=== PATIENT | female | born 2000 | race Hispanic/Latino ===

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

== ENCOUNTER 2021-11-30 23:05 | Emergency (ER) | payer SELFPAY ==
--- NOTE | 2021-12-01 00:30 | ER ---
Nurse's Notes [facility] Name: Wendy Soto Age: 21 yrs Sex: Female : 2000 Arrival Date: 11/30/2021 Time: 23:10 Bed 26 Private MD: Diagnosis: Dermatitis, unspecified;Rash and other nonspecific skin eruption Presentation: 11/30 23:21 Chief complaint: Patient states: States I am having real bad skin irritation on back, ll3 legs, breast area, and armpit area, since last night, states the rash went away then came back. Coronavirus screen: Vaccine status: Patient reports receiving the 2nd dose of the covid vaccine. At this time, the client does not indicate any symptoms associated with coronavirus-19. Ebola Screen: No symptoms or risks identified at this time. Initial Sepsis Screen: Does the patient meet any 2 criteria? No. Patient's initial sepsis screen is negative. Does the patient have a suspected source of infection? No. Patient's initial sepsis screen is negative. Risk Assessment: Do you want to hurt yourself or someone else? Patient reports no desire to harm self or others. Onset of symptoms was November 29, 2021. 23:21 Method Of Arrival: Ambulatory ll3 23:21 Acuity: XIOMARA 4 ll3 Triage Assessment: 23:24 General: Appears uncomfortable, Behavior is calm, cooperative. Pain: Denies pain. ll3 Neuro: Level of Consciousness is awake, alert, obeys commands, Oriented to person, place, time, situation. Cardiovascular: Patient's skin is warm and dry. Respiratory: Respiratory effort is even, unlabored, Respiratory pattern is regular, symmetrical. Derm: Rash noted that is itchy. 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 - Social history:: Smoking status: Patient reports the use of cigarette tobacco products, denies chronic smoking, but will smoke occasionally. Screenin/06 00:47 Abuse screen: Denies threats or abuse. Nutritional screening: No deficits noted. jb4 Tuberculosis screening: No symptoms or risk factors identified. Fall Risk None identified. Assessment: 00:47 General: Appears in no apparent distress. comfortable, Behavior is calm, cooperative, jb4 appropriate for age. Pain: Denies pain. Neuro: Level of Consciousness is awake, alert, obeys commands, Oriented to person, place, time, situation. Cardiovascular: Patient's skin is warm and dry. Respiratory: Airway is patent Respiratory effort is even, unlabored, Respiratory pattern is regular, symmetrical. GI: No signs and/or symptoms were reported involving the gastrointestinal system. : No signs and/or symptoms were reported regarding the genitourinary system. EENT: No signs and/or symptoms were reported regarding the EENT system. Derm: Skin is intact, Skin is pink, warm \T\ dry. Rash noted that is on back, right arm and left arm. Musculoskeletal: Circulation, motion, and sensation intact. Range of motion: intact in all extremities. Vital Signs: 11/30 23:21 BP 126 / 84; Pulse 79; Resp 16; Temp 99.0(TE); Pulse Ox 100% on R/A; Weight 50.8 kg ll3 (R); Height 5 ft. 4 in. (162.56 cm) (R); Pain 0/10; 23:21 Body Mass Index 19.22 (50.80 kg, 162.56 cm) ll3 ED Course: 23:10 Patient arrived in ED. kz 23:24 Triage completed. ll3 23:24 Arm band placed on. ll3 12/01 00:06 Saurabh Frausto MD is Attending Physician. [facility] 00:29 Yusuf Serna, JEFFERY is Primary Nurse. jb4 00:47 Patient has correct armband on for positive identification. Bed in low position. Call jb4 light in reach. Side rails up X 1. 00:47 No provider procedures requiring assistance completed. Patient did not have IV access jb4 during this emergency room visit. Administered Medications: 00:40 Drug: predniSONE 40 mg Route: PO; jb4 00:40 Follow up: Response: Medication administered at discharge. jb4 00:40 Drug: Pepcid (famotidine) 40 mg Route: PO; jb4 00:40 Follow up: Response: Medication administered at discharge. jb4 00:40 Drug: Benadryl (diphenhydrAMINE) 25 mg Route: PO; jb4 00:40 Follow up: Response: Medication administered at discharge. jb4 Outcome: 00:30 Discharge ordered by . elijah 00:47 Discharged to home ambulatory. jb4 00:47 Condition: stable 00:47 Discharge instructions given to patient, Instructed on discharge instructions, follow up and referral plans. medication usage, Demonstrated understanding of instructions, follow-up care, medications, Prescriptions given X 1. 00:48 Patient left the ED. jb4 Signatures: Saurabh Frausto MD MD cha Bryson, James, RN RN jb4 Alexsander Hernandes RN RN ll3 Raiza Dumont
--- NOTE | 2021-12-01 00:31 | EDPHYS ---
Physician Documentation [facility] Name: Wendy Soto Age: 21 yrs Sex: Female : 2000 Arrival Date: 11/30/2021 Time: 23:10 Bed 26 Private MD: CRUZ Physician Saurabh Frausto HPI: 12/01 00:14 This 21 yrs old Female presents to ER via Ambulatory with complaints of Rash - elijah All over. 00:14 The patient's rash thought to be caused by Dermatitis. The rash is located on the body elijah diffusely. The rash can be described as erythematous. Onset: The symptoms/episode began/occurred 1 day(s) ago. Associated signs and symptoms: Pertinent positives:. NETWORK ADMIN: 11/30 23:24 LMP 11/16/2021 ll3 Historical: - Allergies: 23:24 PENICILLINS; ll3 - Home Meds: 23:24 None [Active]; ll3 - PMHx: 23:24 None; ll3 - PSHx: 23:24 None; ll3 - Immunization history:: Client reports receiving the 2nd dose of the Covid vaccine. - Social history:: Smoking status: Patient reports the use of cigarette tobacco products, denies chronic smoking, but will smoke occasionally. ROS: 12/01 00:23 Constitutional: Negative for fever, chills, and weight loss, Eyes: Negative for injury, elijah pain, redness, and discharge, ENT: Negative for injury, pain, and discharge, Neck: Negative for injury, pain, and swelling, Cardiovascular: Negative for chest pain, palpitations, and edema, Respiratory: Negative for shortness of breath, cough, wheezing, and pleuritic chest pain, Abdomen/GI: Negative for abdominal pain, nausea, vomiting, diarrhea, and constipation, Back: Negative for injury and pain, : Negative for injury, bleeding, discharge, and swelling, MS/Extremity: Negative for injury and deformity, Neuro: Negative for headache, weakness, numbness, tingling, and seizure, Psych: Negative for depression, anxiety, suicide ideation, homicidal ideation, and hallucinations, Allergy/Immunology: Negative for hives, rash, and allergies, Endocrine: Negative for neck swelling, polydipsia, polyuria, polyphagia, and marked weight changes, Hematologic/Lymphatic: Negative for swollen nodes, abnormal bleeding, and unusual bruising. Skin: Positive for rash. Exam: 00:23 Constitutional: This is a well developed, well nourished patient who is awake, alert, elijah and in no acute distress. Head/Face: Normocephalic, atraumatic. Eyes: Pupils equal round and reactive to light, extra-ocular motions intact. Lids and lashes normal. Conjunctiva and sclera are non-icteric and not injected. Cornea within normal limits. Periorbital areas with no swelling, redness, or edema. ENT: Nares patent. No nasal discharge, no septal abnormalities noted. Tympanic membranes are normal and external auditory canals are clear. Oropharynx with no redness, swelling, or masses, exudates, or evidence of obstruction, uvula midline. Mucous membranes moist. Neck: Trachea midline, no thyromegaly or masses palpated, and no cervical lymphadenopathy. Supple, full range of motion without nuchal rigidity, or vertebral point tenderness. No Meningismus. Chest/axilla: Normal chest wall appearance and motion. Nontender with no deformity. No lesions are appreciated. Cardiovascular: Regular rate and rhythm with a normal S1 and S2. No gallops, murmurs, or rubs. Normal PMI, no JVD. No pulse deficits. Respiratory: Lungs have equal breath sounds bilaterally, clear to auscultation and percussion. No rales, rhonchi or wheezes noted. No increased work of breathing, no retractions or nasal flaring. Abdomen/GI: Soft, non-tender, with normal bowel sounds. No distension or tympany. No guarding or rebound. No evidence of tenderness throughout. Back: No spinal tenderness. No costovertebral tenderness. Full range of motion. MS/ Extremity: Pulses equal, no cyanosis. Neurovascular intact. Full, normal range of motion. Neuro: Awake and alert, GCS 15, oriented to person, place, time, and situation. Cranial nerves II-XII grossly intact. Motor strength 5/5 in all extremities. Sensory grossly intact. Cerebellar exam normal. Normal gait. Psych: Awake, alert, with orientation to person, place and time. Behavior, mood, and affect are within normal limits. 00:23 Skin: Appearance: Color: pink, Temperature: normal temperature, Moisture: normal moisture, petechiae, not noted, abscess, not appreciated, cellulitis, is not appreciated, induration, is not appreciated, injury, is not appreciated. Vital Signs: 11/30 23:21 BP 126 / 84; Pulse 79; Resp 16; Temp 99.0(TE); Pulse Ox 100% on R/A; Weight 50.8 kg ll3 (R); Height 5 ft. 4 in. (162.56 cm) (R); Pain 0/10; 23:21 Body Mass Index 19.22 (50.80 kg, 162.56 cm) ll3 MDM: 12/01 00:06 Patient medically screened. elijah 00:25 Differential diagnosis: allergic reaction. Data reviewed: vital signs, nurses notes. elijah Data interpreted: site monitor: not applicable for this patient encounter. rate is 79 beats/min, rhythm is regular, Pulse oximetry: on room air is 100 %. Test interpretation: by ED physician or midlevel provider:. Counseling: I had a detailed discussion with the patient and/or guardian regarding: the need for outpatient follow up, for definitive care, a family practitioner. Administered Medications: 00:40 Drug: predniSONE 40 mg Route: PO; jb4 00:40 Follow up: Response: Medication administered at discharge. jb4 00:40 Drug: Pepcid (famotidine) 40 mg Route: PO; jb4 00:40 Follow up: Response: Medication administered at discharge. jb4 00:40 Drug: Benadryl (diphenhydrAMINE) 25 mg Route: PO; jb4 00:40 Follow up: Response: Medication administered at discharge. jb4 Disposition Summary: 12/01/21 00:30 Discharge Ordered Location: Home elijah Problem: new elijah Symptoms: have improved elijah Condition: Stable elijah Diagnosis - Dermatitis, unspecified elijah - Rash and other nonspecific skin eruption elijah Followup: elijah - With: Private Physician - When: 2 - 3 days - Reason: Recheck today's complaints, Continuance of care, Re-evaluation by your physician Discharge Instructions: - Discharge Summary Sheet elijah - Contact Dermatitis eliajh - Rash, Adult elijah - Rash, Adult, [id number] elijah - Contact Dermatitis, [id number] elijah Forms: - Medication Reconciliation Form elijah - Thank You Letter elijah - Antibiotic Education elijah - Prescription Opioid Use elijah - Work release form jb4 Prescriptions: - Benadryl 25 mg Oral Capsule - take 1 capsule by ORAL route every 6 hours As needed; 30 tablet; Refills: 0, [facility] Product Selection Permitted - Pepcid 20 mg Oral Tablet - take 1 tablet by ORAL route every 12 hours for 10 days; 20 tablet; Refills: 0, [facility] Product Selection Permitted - Prednisone 20 mg Oral Tablet - take 2 tablets by ORAL route once daily for 5 days; 10 tablet; Refills: 0, [facility] Product Selection Permitted Signatures: Saurabh Frausto MD MD cha Bryson, James RN RN jb4 Alexsander Hernandes RN RN ll3
[2021-12-01] MEDS ORDERED: predniSONE 20 MG TAB ONE (00:38)
[2021-12-01] MEDS ORDERED: DIPHENHYDRAMINE 25 MG TAB/CAP ONE (00:38)
[2021-12-01] MEDS ORDERED: FAMOTIDINE 20 MG TAB ONE (00:39)
[2021-12-01 15:11] VITALS: BP 126/84; TEMP 99; O2SAT 100
== END 2021-12-01 00:48 | disposition home or self-care (01) ==
LOC: ER 23:05
DX: L30.9 Dermatitis, unspecified (principal); F17.210 Nicotine dependence, cigarettes, uncomplicated; Z88.0 Allergy status to penicillin
CPT/HCPCS: 99283; J7512